=== PATIENT | female | born 1985 | race Caucasian/White ===

== ENCOUNTER 2023-09-15 22:03 | Emergency (ER) | payer SELFPAY ==
[~2023-09-15] VITALS: Ht 167.6 cm; Wt 63.5 kg
[2023-09-15 22:15] VITALS: BP 122/63; PULSE 94; RESP 18; TEMP 98; O2SAT 98
[2023-09-15] MEDS: KETOROLAC 30 MG/ML VIAL IM ONE (23:32)
[2023-09-15 23:39] LABS: FLU A ANTIGEN negative (NEGATIVE); FLU B ANTIGEN NEGATIVE (NEGATIVE)
[2023-09-15 23:50] LABS: APPEARANCE,URINE CLEAR (CLEAR); BILIRUBIN,URINE NEGATIVE (NEGATIVE); BLOOD, URINE TRACE-L (NEGATIVE); COLOR,URINE YELLOW (YELLOW); LEUKOCYTE ESTERASE ,URINE TRACE (NEGATIVE); NITRITE, URINE NEGATIVE (NEGATIVE); PH,URINE 7.5 (5.0-9.0); PROTEIN,URINE NEGATIVE (NEGATIVE); UGLUCOSE NEGATIVE (NEGATIVE)
[2023-09-15 23:56] LABS: BACTERIA,URINE >30 (MANY) /HPF (None Seen); MUCUS,URINE 1+ /LPF (None Seen); SQUAMOUS EPITHELIAL CELL,UR 0-3 (FEW) /LPF (0-3 (FEW))
[2023-09-16] MEDS ORDERED: cefTRIAXone 1,000 MG VIAL ONE (00:36)
[2023-09-16] MEDS ORDERED: LIDOCAINE MPF 1% 5 ML ONE (00:37)
[2023-09-16] MEDS: cefTRIAXone 1,000 MG in LIDOCAINE MPF 1% 2.1 ML IM ONE (00:37)
[2023-09-16] MEDS ORDERED: BENZ200C4 PO (00:41)
[2023-09-16] MEDS ORDERED: IBUP-2213 PO (00:41)
[2023-09-16] MEDS ORDERED: NITR100C7 PO (00:41)
[2023-09-16 00:57] VITALS: BP 122/63; PULSE 94; RESP 18; TEMP 98; O2SAT 98
[2023-09-16 11:49] LABS: INFLUENZA A PCR Negative (Negative); INFLUENZA B PCR Negative (Negative); NOVEL CORONAVIRUS(COVID19) NAA Negative (Negative); RSV PCR Negative (Negative)
== END 2023-09-16 00:57 | disposition home or self-care (01) ==
LOC: MED 22:03
DX: N39.0 Urinary tract infection, site not specified (principal); J06.9 Acute upper respiratory infection, unspecified; B97.89 Other viral agents as the cause of diseases classified elsewhere; G44.209 Tension-type headache, unspecified, not intractable; F15.90 Other stimulant use, unspecified, uncomplicated; F41.9 Anxiety disorder, unspecified; F17.210 Nicotine dependence, cigarettes, uncomplicated; F20.9 Schizophrenia, unspecified; F31.9 Bipolar disorder, unspecified; Z20.822 Contact with and (suspected) exposure to COVID-19; Z79.1 Long term (current) use of non-steroidal anti-inflammatories (NSAID); Z79.899 Other long term (current) drug therapy; Z59.00 Homelessness unspecified
CPT/HCPCS: 81001; 81025; 87426; 87635; 87804; 96372; 99284; J0696; J1885; J2001

== ENCOUNTER 2023-09-24 03:45 | Emergency (ER) | payer SELFPAY ==
[~2023-09-24] VITALS: Ht 167.6 cm; Wt 74.4 kg
[~2023-09-24 03:45] MED LIST: BENZ200C4 PO; IBUP-2213 PO; NITR100C7 PO
[2023-09-24 04:00] VITALS: BP 124/76; PULSE 88; RESP 18; TEMP 97.5; O2SAT 99
[2023-09-24] MEDS ORDERED: NITR100C7 PO (04:15)
[2023-09-24] MEDS ORDERED: BENZ200C4 PO (04:15)
[2023-09-24] MEDS: NITROFURANTOIN 100 MG CAP PO ONE (04:27)
[2023-09-24] MEDS: BENZONATATE 100 MG CAPLF PO ONE (04:27)
[2023-09-24] MEDS: KETOROLAC 30 MG/ML VIAL IM ONE (04:27)
[2023-09-24 04:37] VITALS: BP 124/76; PULSE 88; RESP 18; TEMP 97.5; O2SAT 99
== END 2023-09-24 04:37 | disposition home or self-care (01) ==
LOC: MED 03:45
DX: N39.0 Urinary tract infection, site not specified (principal); Z76.0 Encounter for issue of repeat prescription; Z79.899 Other long term (current) drug therapy; Z88.8 Allergy status to other drugs, medicaments and biological substances
CPT/HCPCS: 96372; 99283; J1885